=== PATIENT | male | born 1980 | race Caucasian/White ===

== ENCOUNTER 2020-04-15 09:13 | Day surgery (SDC) | payer BC ==
[~2020-04-15] VITALS: Ht 185.4 cm; Wt 91.7 kg
[2020-04-15] MEDS ORDERED: PRINIVIL40 MG PO (09:27)
[2020-04-15 09:28] VITALS: BP 146/87; PULSE 69; TEMP 98.3
[2020-04-15 10:35] VITALS: BP 130/88; PULSE 82
--- NOTE | 2020-04-15 10:35 | NUR ---
Patient arrives back to [facility] alert, denies pain or nausea. Patient ambulated from cart to chair with standby assist and without any complications. Patient monitor applied, vitals stable. Patient given soda and muffin.
[2020-04-15 11:00] VITALS: BP 113/94; PULSE 70
--- NOTE | 2020-04-15 11:00 | NUR ---
Patient tolerated soda and muffin without any nausea. Vitals stable.
--- NOTE | 2020-04-15 11:25 | NUR ---
Dismissal instructions gone over with patient. Patient voices understanding and all questions answered.
--- NOTE | 2020-04-15 11:30 | NUR ---
Patient discharged to private vehicle at patient enterance via wheelchair without any complications. Patient leaves thanking staff for services.
== END 2020-04-15 11:30 | disposition home or self-care (01) ==
LOC: SDCO
DX: K21.00 Gastro-esophageal reflux disease with esophagitis, without bleeding (principal); K29.30 Chronic superficial gastritis without bleeding; R19.7 Diarrhea, unspecified; R19.5 Other fecal abnormalities; R63.0 Anorexia; I10 Essential (primary) hypertension; F41.9 Anxiety disorder, unspecified; F17.210 Nicotine dependence, cigarettes, uncomplicated; Z20.822 Contact with and (suspected) exposure to COVID-19; Z79.899 Other long term (current) drug therapy
CPT/HCPCS: J2704; J7030